=== PATIENT | male | born 1985 | race African-American/Black ===

== ENCOUNTER 2016-10-16 19:28 | Emergency (ER) | payer OTHER ==
[~2016-10-16] VITALS: Ht 175.3 cm; Wt 81.8 kg
[~2016-10-16 19:28] MED LIST: BENTYL10 MG PO; CLONAZEPAM0.5 MG PO; COGENTIN0.5 MG PO; DEPAKOTE500 MG PO; Depakote ER (Extende PO; Depakote PO; FLUOXETINE HCL20 MG PO; GEMFIBROZIL600 MG; GEODON80 MG PO; Geodon PO; Lopid PO; PROMETHAZINE HC25 M1 PO; PROZAC10 MG PO; RISPERDAL2 MG PO; RISPERDAL3 MG PO; RISPERDAL4 MG PO; RISPERIDONE4 MG PO; ROBITUSSIN AC,T10 ML PO; SEROQUEL100 MG PO; SEROQUEL300 MG PO; risperDAL PO; risperdal
[2016-10-16 19:31] VITALS: BP 204/187
== END 2016-10-16 20:33 | disposition left against medical advice (07) ==
LOC: EME 19:28
DX: R55 Syncope and collapse (principal); R11.10 Vomiting, unspecified; Z53.21 Procedure and treatment not carried out due to patient leaving prior to being seen by health care provider
CPT/HCPCS: 80053; 81003; 85027

== ENCOUNTER 2016-11-11 22:59 | Emergency (ER) | payer SELFPAY ==
[~2016-11-11] VITALS: Ht 175.3 cm; Wt 81.4 kg
[2016-11-11] MEDS ORDERED: ZOFRAN ODT4 MG PO (23:27)
[2016-11-11 23:38] VITALS: BP 121/58
== END 2016-11-11 23:43 | disposition home or self-care (01) ==
LOC: EME → EDBD 22:59 → EME 23:43
DX: F12.10 Cannabis abuse, uncomplicated (principal); F17.200 Nicotine dependence, unspecified, uncomplicated
CPT/HCPCS: 99281; 99284

== ENCOUNTER 2016-12-24 23:31 | Inpatient (IN) | payer OTHER ==
[~2016-12-24] VITALS: Ht 170.2 cm; Wt 68.4 kg
[~2016-12-24 23:31] MED LIST changes: +ZOFRAN ODT4 MG PO
[2016-12-25 00:03] LABS: EOSINOPHIL (%) 1.4 % (0-5); EOSINOPHIL COUNT 0.1 K/uL (0-0.3); HEMATOCRIT 36.2 % (38.0-50.0); IMMATURE GRANULOCYTE (%) 0.3 % (0.0-0.7); INSTRUMENT ABS NEUTROPHIL CT 3.6 K/uL; LYMPHOCYTE COUNT 1.8 K/uL (1.0-2.8); MCH 29.2 PG (29.0-34.0); MCHC 34.5 G/DL (30.0-36.0); MCV 84.6 FL (86-99); MEAN PLAT.VOLUME 11.5 uM^3 (9.0-12.4); MONOCYTE (%) 14.2 % (3-12); MONOCYTE COUNT 0.9 K/uL (0-0.8); NEUTROPHIL (%) 55.6 % (45-76); NEUTROPHIL COUNT 3.6 K/uL (1.8-6.4); PLATELET COUNT 130 K/uL (156-360); RBC DIS.WIDTH-SD 43.4 % (39-53); RED BLOOD COUNT 4.28 M/uL (4.00-5.50); WHITE BLOOD COUNT 6.4 K/uL (4.1-10.2)
[2016-12-25 00:20] LABS: CHLORIDE 108 mEq/L (99-109); POTASSIUM 3.5 mEq/L (3.7-5.4); SODIUM 138 mEq/L (136-147)
[2016-12-25 00:21] LABS: ADD MIUA? NO; BILIRUBIN NEGATIVE; BLOOD NEGATIVE; COLOR YELLOW ((YELLOW)); GLUCOSE (STRIP) NEGATIVE; KETONES NEGATIVE; LEUKOCYTES NEGATIVE; NITRITE NEGATIVE; PROTEIN (STRIP) NEGATIVE; SPECIFIC GRAVITY 1.021 (1.000-1.030); UCUL ADDED? NO
[2016-12-25 00:23] LABS: GLUCOSE 105 mg/dL (70-99)
[2016-12-25 00:24] LABS: ANION GAP 6 MEQ/L (2-14)
[2016-12-25 00:25] LABS: TOTAL BILIRUBIN 0.3 mg/dL (0.0-1.0)
[2016-12-25 00:26] LABS: SERUM ETHYL ALCOHOL < 10 mg/dL
[2016-12-25 00:27] LABS: ALKALINE PHOSPHATASE 97 IU/L (3-129); GFR ESTIMATE (CALCULATED) > 59 mL/min/
[2016-12-25 00:28] LABS: UREA NITROGEN (BUN) 15 mg/dL (9-23)
[2016-12-25 00:30] LABS: SALICYLATE < 5.0 MG/DL (15-30)
[2016-12-25 00:36] LABS: ADD MEDTOX COMMENT Y; AMPHETAMINE NEGATIVE (500 ng/mL); BARBITURATES NEGATIVE (200 ng/mL); BENZODIAZEPINES NEGATIVE (150 ng/mL); COCAINE NEGATIVE (150 ng/mL); INTERNAL CONTROLS VALID? YES; METHADONE NEGATIVE (200 ng/mL); METHAMPHETAMINE NEGATIVE (500 ng/mL); OPIATES (MORPHINE) NEGATIVE (100 ng/mL); OXYCODONE NEGATIVE (100 ng/mL); PHENCYCLIDINE NEGATIVE (25 ng/mL); PROPOXYPHENE NEGATIVE (300 ng/mL); THC CANNABINOIDS PRESUMPTIVE POSITIVE (50 ng/mL); TRICYCLIC ANTIDEPRESSANTS NEGATIVE (300 ng/mL)
[2016-12-25 02:51] VITALS: BP 141/85
[2016-12-25 08:00] VITALS: BP 135/80
[2016-12-25 15:44] VITALS: BP 132/66
[2016-12-26 07:54] VITALS: BP 128/74
[2016-12-26 15:31] VITALS: BP 111/75
[2016-12-27 08:56] VITALS: BP 115/77
[2016-12-27 15:58] VITALS: BP 120/70
[2016-12-28 07:55] VITALS: BP 148/64
[2016-12-28 15:28] VITALS: BP 117/68
[2016-12-29 07:48] VITALS: BP 125/77
[2016-12-29 15:41] VITALS: BP 164/71
[2016-12-30 07:55] VITALS: BP 145/82
[2016-12-30 15:09] VITALS: BP 123/73
[2016-12-31 07:49] VITALS: BP 132/73
[2016-12-31 15:58] VITALS: BP 125/66
[2017-01-01 07:41] VITALS: BP 125/72
[2017-01-01 15:38] VITALS: BP 122/71
[2017-01-02 07:35] VITALS: BP 123/76
[2017-01-02 15:19] VITALS: BP 127/67
[2017-01-03 15:25] VITALS: BP 139/81
[2017-01-04 07:02] VITALS: BP 136/64
[2017-01-04 14:43] VITALS: BP 130/66
[2017-01-04 19:33] VITALS: BP 115/65
[2017-01-05 07:33] VITALS: BP 159/74
[2017-01-05 15:24] VITALS: BP 133/64
[2017-01-06 07:34] VITALS: BP 123/68
[2017-01-06 15:17] VITALS: BP 135/70
[2017-01-07 07:17] VITALS: BP 127/74
[2017-01-07 15:28] VITALS: BP 141/66
[2017-01-08 07:54] VITALS: BP 126/72
[2017-01-08] MEDS ORDERED: DIVALPROEX SOD500 M1 PO (09:05)
[2017-01-08] MEDS ORDERED: DEPAKOTE ER500 MG PO (09:05)
[2017-01-08] MEDS ORDERED: ZYPREXA20 MG PO (09:05)
[2017-01-08] MEDS ORDERED: RISPERDAL2 MG PO (09:07)
[2017-01-08] MEDS ORDERED: RISPERDAL4 MG PO (09:07)
== END 2017-01-08 10:14 | disposition home or self-care (01) | DRG 885 ==
LOC: EME → EDBD 23:31 → EME 23:31 → 1WEST 12-25 01:08 → EDOF 12-25 01:08 → ENRESERV 12-25 01:55 → 1WEST 12-25 02:42
PROVIDERS: Emergency Medicine
DX: F25.0 Schizoaffective disorder, bipolar type (principal); F12.90 Cannabis use, unspecified, uncomplicated; F19.90 Other psychoactive substance use, unspecified, uncomplicated; F17.200 Nicotine dependence, unspecified, uncomplicated; Z91.5 Personal history of self-harm; Z79.899 Other long term (current) drug therapy
CPT/HCPCS: 80053; 80164; 81003; 84999; 85025; 90837; 97150 GO; 97166 GO; 99281; 99285; G0480; Q0177

== ENCOUNTER 2017-01-12 04:01 | Emergency (ER) | payer OTHER ==
[~2017-01-12] VITALS: Ht 175.3 cm; Wt 75.4 kg
[~2017-01-12 04:01] MED LIST changes: +DEPAKOTE ER500 MG PO; +DIVALPROEX SOD500 M1 PO; +ZYPREXA20 MG PO
[2017-01-12 04:27] LABS: HEMATOCRIT 38.9 % (38.0-50.0); MCH 28.9 PG (29.0-34.0); MCHC 34.2 G/DL (30.0-36.0); MCV 84.6 FL (86-99); MEAN PLAT.VOLUME 9.9 uM^3 (9.0-12.4); RBC DIS.WIDTH-CV 14.6 % (11.8-14.6); RBC DIS.WIDTH-SD 44.9 % (39-53); WHITE BLOOD COUNT 10.5 K/uL (4.1-10.2)
[2017-01-12 04:28] LABS: PLATELET COUNT 292 K/uL (156-360)
[2017-01-12 04:35] LABS: CHLORIDE 108 mEq/L (99-109)
[2017-01-12 04:36] LABS: POTASSIUM 3.9 mEq/L (3.7-5.4); SODIUM 140 mEq/L (136-147)
[2017-01-12 04:37] LABS: GLUCOSE 125 mg/dL (70-99)
[2017-01-12 04:39] LABS: ANION GAP 10 MEQ/L (2-14)
[2017-01-12 04:40] LABS: SERUM ETHYL ALCOHOL < 10 mg/dL
[2017-01-12 04:41] LABS: GFR ESTIMATE (CALCULATED) > 59 mL/min/
[2017-01-12 04:43] LABS: UREA NITROGEN (BUN) 7 mg/dL (9-23)
[2017-01-12 04:44] LABS: SALICYLATE < 5.0 MG/DL (15-30)
[2017-01-12 05:52] VITALS: BP 102/70
== END 2017-01-12 05:59 | disposition home or self-care (01) ==
LOC: EME → EDBD 04:01 → EME 05:59
PROVIDERS: Emergency Medicine
DX: T40.991A Poisoning by other psychodysleptics [hallucinogens], accidental (unintentional), initial encounter (principal); F16.10 Hallucinogen abuse, uncomplicated; J45.909 Unspecified asthma, uncomplicated; F41.9 Anxiety disorder, unspecified; F32.9 Major depressive disorder, single episode, unspecified; F25.9 Schizoaffective disorder, unspecified; F31.9 Bipolar disorder, unspecified; Z59.0 Homelessness; F17.200 Nicotine dependence, unspecified, uncomplicated
CPT/HCPCS: 80048; 85027; 93005; 99281; 99284; G0480

== ENCOUNTER 2017-01-14 17:42 | Emergency (ER) | payer OTHER ==
[~2017-01-14] VITALS: Ht 175.3 cm; Wt 74.5 kg
[2017-01-14 18:58] LABS: HEMATOCRIT 34.6 % (38.0-50.0); MCH 29.1 PG (29.0-34.0); MCHC 34.4 G/DL (30.0-36.0); MCV 84.6 FL (86-99); MEAN PLAT.VOLUME 10.2 uM^3 (9.0-12.4); PLATELET COUNT 243 K/uL (156-360); RBC DIS.WIDTH-CV 14.7 % (11.8-14.6); RBC DIS.WIDTH-SD 45.5 % (39-53); RED BLOOD COUNT 4.09 M/uL (4.00-5.50); WHITE BLOOD COUNT 9.2 K/uL (4.1-10.2)
[2017-01-14 19:08] LABS: CHLORIDE 108 mEq/L (99-109); POTASSIUM 3.9 mEq/L (3.7-5.4); SODIUM 139 mEq/L (136-147)
[2017-01-14 19:09] LABS: GLUCOSE 98 mg/dL (70-99)
[2017-01-14 19:11] LABS: ANION GAP 8 MEQ/L (2-14)
[2017-01-14 19:12] LABS: SERUM ETHYL ALCOHOL < 10 mg/dL
[2017-01-14 19:13] LABS: GFR ESTIMATE (CALCULATED) > 59 mL/min/
[2017-01-14 19:15] LABS: UREA NITROGEN (BUN) 15 mg/dL (9-23)
[2017-01-14 19:16] LABS: SALICYLATE < 5.0 MG/DL (15-30)
[2017-01-14 19:47] VITALS: BP 132/74
== END 2017-01-14 19:48 | disposition home or self-care (01) ==
LOC: EME 17:42
PROVIDERS: Emergency Medicine
DX: F25.0 Schizoaffective disorder, bipolar type (principal); J45.909 Unspecified asthma, uncomplicated; F32.9 Major depressive disorder, single episode, unspecified; F41.9 Anxiety disorder, unspecified; F17.200 Nicotine dependence, unspecified, uncomplicated; Z91.5 Personal history of self-harm
CPT/HCPCS: 80048; 85027; 90839; 99281; 99285; G0480

== ENCOUNTER 2017-01-17 20:51 | Emergency (ER) | payer OTHER ==
[~2017-01-17] VITALS: Ht 175.3 cm; Wt 77.9 kg
[2017-01-17] MEDS ORDERED: OLANZAPINE20 MG PO (22:20)
[2017-01-17 22:37] VITALS: BP 130/77
== END 2017-01-17 23:10 | disposition home or self-care (01) ==
LOC: EME 20:51
DX: F41.9 Anxiety disorder, unspecified (principal); Z76.0 Encounter for issue of repeat prescription
CPT/HCPCS: 99281; 99283

== ENCOUNTER 2017-01-19 00:11 | Emergency (ER) | payer OTHER ==
[~2017-01-19] VITALS: Ht 177.8 cm; Wt 74.3 kg
[~2017-01-19 00:11] MED LIST changes: +OLANZAPINE20 MG PO
[2017-01-19 01:43] LABS: EOSINOPHIL (%) 1.1 % (0-5); EOSINOPHIL COUNT 0.1 K/uL (0-0.3); IMMATURE GRANULOCYTE (%) 0.3 % (0.0-0.7); INSTRUMENT ABS NEUTROPHIL CT 6.3 K/uL; LYMPHOCYTE COUNT 1.7 K/uL (1.0-2.8); MCH 28.7 PG (29.0-34.0); MCHC 34.2 G/DL (30.0-36.0); MCV 83.9 FL (86-99); MEAN PLAT.VOLUME 10.5 uM^3 (9.0-12.4); MONOCYTE (%) 10.3 % (3-12); MONOCYTE COUNT 0.9 K/uL (0-0.8); NEUTROPHIL (%) 69.3 % (45-76); NEUTROPHIL COUNT 6.3 K/uL (1.8-6.4); PLATELET COUNT 216 K/uL (156-360); RBC DIS.WIDTH-CV 14.6 % (11.8-14.6); RBC DIS.WIDTH-SD 44.7 % (39-53); RED BLOOD COUNT 4.29 M/uL (4.00-5.50); WHITE BLOOD COUNT 9.1 K/uL (4.1-10.2)
[2017-01-19 01:48] LABS: CHLORIDE 108 mEq/L (99-109); POTASSIUM 3.6 mEq/L (3.7-5.4); SODIUM 142 mEq/L (136-147)
[2017-01-19 01:50] LABS: GLUCOSE 94 mg/dL (70-99)
[2017-01-19 01:51] LABS: ANION GAP 9 MEQ/L (2-14)
[2017-01-19 01:53] LABS: SERUM ETHYL ALCOHOL < 10 mg/dL
[2017-01-19 01:54] LABS: GFR ESTIMATE (CALCULATED) > 59 mL/min/
[2017-01-19 01:55] LABS: UREA NITROGEN (BUN) 12 mg/dL (9-23)
[2017-01-19 05:35] LABS: AMPHETAMINE NEGATIVE (500 ng/mL); BARBITURATES NEGATIVE (200 ng/mL); BENZODIAZEPINES NEGATIVE (150 ng/mL); COCAINE NEGATIVE (150 ng/mL); INTERNAL CONTROLS VALID? YES; METHADONE NEGATIVE (200 ng/mL); METHAMPHETAMINE NEGATIVE (500 ng/mL); OPIATES (MORPHINE) NEGATIVE (100 ng/mL); OXYCODONE NEGATIVE (100 ng/mL); PHENCYCLIDINE NEGATIVE (25 ng/mL); PROPOXYPHENE NEGATIVE (300 ng/mL); THC CANNABINOIDS NEGATIVE (50 ng/mL); TRICYCLIC ANTIDEPRESSANTS NEGATIVE (300 ng/mL)
[2017-01-19 14:47] VITALS: BP 124/76
== END 2017-01-19 14:47 | disposition home or self-care (01) ==
LOC: EME → EDBD 00:11 → EME 00:11
PROVIDERS: Emergency Medicine
DX: F16.10 Hallucinogen abuse, uncomplicated (principal); R41.82 Altered mental status, unspecified; F25.9 Schizoaffective disorder, unspecified; J45.909 Unspecified asthma, uncomplicated; F41.9 Anxiety disorder, unspecified; F32.9 Major depressive disorder, single episode, unspecified; F17.200 Nicotine dependence, unspecified, uncomplicated; Z91.5 Personal history of self-harm
CPT/HCPCS: 70450; 80048; 80164; 85025; 90839; 99281; 99285; G0480

== ENCOUNTER 2017-01-26 19:50 | Emergency (ER) | payer OTHER ==
[~2017-01-26] VITALS: Ht 175.3 cm; Wt 73.3 kg
[2017-01-26 20:17] LABS: HEMATOCRIT 38.7 % (38.0-50.0); MCH 29.2 PG (29.0-34.0); MCHC 34.4 G/DL (30.0-36.0); MCV 84.9 FL (86-99); MEAN PLAT.VOLUME 10.8 uM^3 (9.0-12.4); PLATELET COUNT 170 K/uL (156-360); RBC DIS.WIDTH-CV 15.1 % (11.8-14.6); RBC DIS.WIDTH-SD 47.2 % (39-53); RED BLOOD COUNT 4.56 M/uL (4.00-5.50); WHITE BLOOD COUNT 9.5 K/uL (4.1-10.2)
[2017-01-26 20:26] LABS: CHLORIDE 113 mEq/L (99-109); POTASSIUM 3.7 mEq/L (3.7-5.4); SODIUM 140 mEq/L (136-147)
[2017-01-26 20:28] LABS: GLUCOSE 91 mg/dL (70-99)
[2017-01-26 20:30] LABS: ANION GAP 5 MEQ/L (2-14); TOTAL BILIRUBIN 0.1 mg/dL (0.0-1.0)
[2017-01-26 20:32] LABS: ALKALINE PHOSPHATASE 99 IU/L (3-129); GFR ESTIMATE (CALCULATED) > 59 mL/min/
[2017-01-26 20:33] LABS: UREA NITROGEN (BUN) 14 mg/dL (9-23)
[2017-01-26 20:35] LABS: LIPASE 25 U/L (1.0-51.0)
[2017-01-26 21:42] LABS: ADD MIUA? NO; BILIRUBIN NEGATIVE; BLOOD NEGATIVE; COLOR YELLOW ((YELLOW)); GLUCOSE (STRIP) NEGATIVE; KETONES NEGATIVE; LEUKOCYTES NEGATIVE; NITRITE NEGATIVE; PROTEIN (STRIP) NEGATIVE; SPECIFIC GRAVITY 1.026 (1.000-1.030); UCUL ADDED? NO; UROBILINOGEN 0.2 MG/DL (0.2-1.0)
[2017-01-26 21:58] LABS: SERUM ETHYL ALCOHOL < 10 mg/dL
[2017-01-26 22:50] LABS: TROP-I INTERPRETATION NEGATIVE; TROPONIN-I < 0.01 ng/mL (0.0-0.30)
[2017-01-26 23:09] VITALS: BP 105/62
== END 2017-01-26 23:09 | disposition home or self-care (01) ==
LOC: EME 19:50
PROVIDERS: Emergency Medicine
DX: R19.7 Diarrhea, unspecified (principal); F20.9 Schizophrenia, unspecified; J45.909 Unspecified asthma, uncomplicated; F41.9 Anxiety disorder, unspecified; F31.9 Bipolar disorder, unspecified; F32.9 Major depressive disorder, single episode, unspecified; Z91.5 Personal history of self-harm; F17.200 Nicotine dependence, unspecified, uncomplicated
CPT/HCPCS: 71010; 80053; 81003; 83690; 84484; 85027; 90839; 99281; 99284; G0480

== ENCOUNTER 2017-01-29 01:58 | Emergency (ER) | payer OTHER ==
[~2017-01-29] VITALS: Ht 175.3 cm; Wt 72.2 kg
[2017-01-29 02:55] LABS: ADD MIUA? NO; BILIRUBIN NEGATIVE; BLOOD NEGATIVE; COLOR STRAW ((YELLOW)); GLUCOSE (STRIP) NEGATIVE; KETONES 5; LEUKOCYTES NEGATIVE; NITRITE NEGATIVE; PROTEIN (STRIP) NEGATIVE; SPECIFIC GRAVITY 1.006 (1.000-1.030); UCUL ADDED? NO; UROBILINOGEN 0.2 MG/DL (0.2-1.0)
[2017-01-29 03:03] LABS: HEMATOCRIT 37.4 % (38.0-50.0); MCH 29.4 PG (29.0-34.0); MCHC 35.6 G/DL (30.0-36.0); MCV 82.6 FL (86-99); MEAN PLAT.VOLUME 10.5 uM^3 (9.0-12.4); PLATELET COUNT 166 K/uL (156-360); RBC DIS.WIDTH-CV 14.6 % (11.8-14.6); RBC DIS.WIDTH-SD 43.6 % (39-53); RED BLOOD COUNT 4.53 M/uL (4.00-5.50); WHITE BLOOD COUNT 9.7 K/uL (4.1-10.2)
[2017-01-29 03:10] LABS: AMPHETAMINE NEGATIVE (500 ng/mL); BARBITURATES NEGATIVE (200 ng/mL); BENZODIAZEPINES NEGATIVE (150 ng/mL); COCAINE NEGATIVE (150 ng/mL); INTERNAL CONTROLS VALID? YES; METHADONE NEGATIVE (200 ng/mL); METHAMPHETAMINE NEGATIVE (500 ng/mL); OPIATES (MORPHINE) NEGATIVE (100 ng/mL); OXYCODONE NEGATIVE (100 ng/mL); PHENCYCLIDINE NEGATIVE (25 ng/mL); PROPOXYPHENE NEGATIVE (300 ng/mL); THC CANNABINOIDS NEGATIVE (50 ng/mL); TRICYCLIC ANTIDEPRESSANTS NEGATIVE (300 ng/mL)
[2017-01-29 03:16] LABS: GLUCOSE 85 mg/dL (70-99)
[2017-01-29 03:19] LABS: SERUM ETHYL ALCOHOL < 10 mg/dL
[2017-01-29 03:20] LABS: GFR ESTIMATE (CALCULATED) > 59 mL/min/
[2017-01-29 03:21] LABS: UREA NITROGEN (BUN) 5 mg/dL (9-23)
[2017-01-29 03:22] LABS: CHLORIDE 92 mEq/L (99-109); POTASSIUM 2.7 mEq/L (3.7-5.4)
[2017-01-29 03:26] LABS: SODIUM 138 mEq/L (136-147)
[2017-01-29 03:29] LABS: ANION GAP 8 MEQ/L (2-14)
[2017-01-29 05:53] VITALS: BP 112/80
== END 2017-01-29 05:54 | disposition home or self-care (01) ==
LOC: EME 01:58
PROVIDERS: Emergency Medicine
DX: F25.0 Schizoaffective disorder, bipolar type (principal); Z91.14 Patient's other noncompliance with medication regimen; E87.6 Hypokalemia; R11.2 Nausea with vomiting, unspecified; R19.7 Diarrhea, unspecified; F17.200 Nicotine dependence, unspecified, uncomplicated
CPT/HCPCS: 80048; 81003; 85027; 90839; 99281; 99285; G0480

== ENCOUNTER 2017-02-03 02:11 | Emergency (ER) | payer OTHER ==
[~2017-02-03] VITALS: Ht 175.3 cm; Wt 71.0 kg
[2017-02-03 02:56] LABS: EOSINOPHIL (%) 2.9 % (0-5); EOSINOPHIL COUNT 0.3 K/uL (0-0.3); HEMATOCRIT 38.8 % (38.0-50.0); IMMATURE GRANULOCYTE (%) 0.2 % (0.0-0.7); LYMPHOCYTE COUNT 2.2 K/uL (1.0-2.8); MCH 28.8 PG (29.0-34.0); MCHC 34.5 G/DL (30.0-36.0); MCV 83.3 FL (86-99); MEAN PLAT.VOLUME 10.7 uM^3 (9.0-12.4); MONOCYTE (%) 8.3 % (3-12); MONOCYTE COUNT 0.8 K/uL (0-0.8); NEUTROPHIL (%) 64.6 % (45-76); PLATELET COUNT 206 K/uL (156-360); RBC DIS.WIDTH-SD 45.2 % (39-53); RED BLOOD COUNT 4.66 M/uL (4.00-5.50); WHITE BLOOD COUNT 9.2 K/uL (4.1-10.2)
[2017-02-03 03:07] LABS: SODIUM 142 mEq/L (136-147)
[2017-02-03 03:10] LABS: GLUCOSE 79 mg/dL (70-99)
[2017-02-03 03:11] LABS: ANION GAP 13 MEQ/L (2-14); TOTAL BILIRUBIN 0.3 mg/dL (0.0-1.0)
[2017-02-03 03:13] LABS: ALKALINE PHOSPHATASE 89 IU/L (3-129); GFR ESTIMATE (CALCULATED) > 59 mL/min/; SERUM ETHYL ALCOHOL < 10 mg/dL
[2017-02-03 03:14] LABS: UREA NITROGEN (BUN) 11 mg/dL (9-23)
[2017-02-03 03:21] LABS: CHLORIDE 105 mEq/L (99-109); POTASSIUM 4.2 mEq/L (3.7-5.4)
[2017-02-03 05:29] VITALS: BP 102/71
== END 2017-02-03 05:29 | disposition home or self-care (01) ==
LOC: EME 02:11
PROVIDERS: Emergency Medicine
DX: F19.129 Other psychoactive substance abuse with intoxication, unspecified (principal); Z91.14 Patient's other noncompliance with medication regimen; F17.200 Nicotine dependence, unspecified, uncomplicated
CPT/HCPCS: 80053; 85025; 99281; 99284; G0480

== ENCOUNTER 2017-02-05 01:36 | Emergency (ER) | payer OTHER ==
[~2017-02-05] VITALS: Ht 175.3 cm; Wt 76.9 kg
[2017-02-05 02:33] LABS: HEMATOCRIT 36.1 % (38.0-50.0); MCH 29.1 PG (29.0-34.0); MCHC 34.9 G/DL (30.0-36.0); MCV 83.4 FL (86-99); MEAN PLAT.VOLUME 10.2 uM^3 (9.0-12.4); PLATELET COUNT 196 K/uL (156-360); RBC DIS.WIDTH-SD 45.9 % (39-53); RED BLOOD COUNT 4.33 M/uL (4.00-5.50); WHITE BLOOD COUNT 7.5 K/uL (4.1-10.2)
[2017-02-05 02:40] LABS: ADD MIUA? NO; BILIRUBIN NEGATIVE; BLOOD NEGATIVE; COLOR STRAW ((YELLOW)); GLUCOSE (STRIP) NEGATIVE; KETONES NEGATIVE; LEUKOCYTES NEGATIVE; NITRITE NEGATIVE; PROTEIN (STRIP) NEGATIVE; SPECIFIC GRAVITY 1.004 (1.000-1.030); UCUL ADDED? NO; UROBILINOGEN 0.2 MG/DL (0.2-1.0)
[2017-02-05 02:44] LABS: CHLORIDE 106 mEq/L (99-109); POTASSIUM 3.9 mEq/L (3.7-5.4); SODIUM 139 mEq/L (136-147)
[2017-02-05 02:46] LABS: GLUCOSE 92 mg/dL (70-99)
[2017-02-05 02:47] LABS: ANION GAP 10 MEQ/L (2-14)
[2017-02-05 02:49] LABS: SERUM ETHYL ALCOHOL < 10 mg/dL
[2017-02-05 02:50] LABS: GFR ESTIMATE (CALCULATED) > 59 mL/min/; UREA NITROGEN (BUN) 12 mg/dL (9-23)
[2017-02-05 02:58] LABS: AMPHETAMINE NEGATIVE (500 ng/mL); BARBITURATES NEGATIVE (200 ng/mL); BENZODIAZEPINES NEGATIVE (150 ng/mL); COCAINE NEGATIVE (150 ng/mL); INTERNAL CONTROLS VALID? YES; METHADONE NEGATIVE (200 ng/mL); METHAMPHETAMINE NEGATIVE (500 ng/mL); OPIATES (MORPHINE) NEGATIVE (100 ng/mL); OXYCODONE NEGATIVE (100 ng/mL); PHENCYCLIDINE NEGATIVE (25 ng/mL); PROPOXYPHENE NEGATIVE (300 ng/mL); THC CANNABINOIDS NEGATIVE (50 ng/mL); TRICYCLIC ANTIDEPRESSANTS NEGATIVE (300 ng/mL)
[2017-02-05 03:46] VITALS: BP 130/74
[2017-02-06] MEDS ORDERED: OLANZAPINE20 MG PO (07:00)
[2017-02-06] MEDS ORDERED: RISPERDAL2 MG PO (07:00)
[2017-02-06] MEDS ORDERED: RISPERDAL4 MG PO (07:00)
== END 2017-02-05 03:57 | disposition home or self-care (01) ==
LOC: EME 01:36
PROVIDERS: Emergency Medicine
DX: F25.0 Schizoaffective disorder, bipolar type (principal); J45.909 Unspecified asthma, uncomplicated; F41.9 Anxiety disorder, unspecified; F32.9 Major depressive disorder, single episode, unspecified; F17.200 Nicotine dependence, unspecified, uncomplicated
CPT/HCPCS: 80048; 81003; 85027; 90839; 99281; 99284; G0480

== ENCOUNTER 2017-02-06 06:27 | Emergency (ER) | payer OTHER ==
[~2017-02-06] VITALS: Ht 175.3 cm; Wt 76.7 kg
[2017-02-06] MEDS ORDERED: RISPERDAL2 MG PO (07:00)
[2017-02-06] MEDS ORDERED: OLANZAPINE20 MG PO (07:00)
[2017-02-06] MEDS ORDERED: RISPERDAL4 MG PO (07:00)
[2017-02-06 07:35] VITALS: BP 148/95
== END 2017-02-06 07:36 | disposition home or self-care (01) ==
LOC: EME 06:27
DX: F20.9 Schizophrenia, unspecified (principal); F41.9 Anxiety disorder, unspecified; Z76.0 Encounter for issue of repeat prescription
CPT/HCPCS: 99281; 99283

== ENCOUNTER 2017-02-13 05:41 | Emergency (ER) | payer OTHER ==
[~2017-02-13] VITALS: Ht 175.3 cm; Wt 75.2 kg
[2017-02-13 08:29] VITALS: BP 134/90
[2017-02-14] MEDS ORDERED: RISPERIDONE2 MG PO (20:07)
[2017-02-14] MEDS ORDERED: OLANZAPINE20 MG PO ×2 (20:08→20:09)
[2017-02-14] MEDS ORDERED: RISPERIDONE4 MG PO (20:08)
[2017-02-14] MEDS ORDERED: DEPAKOTE ER500 MG PO ×2 (20:10→20:11)
== END 2017-02-13 08:29 | disposition home or self-care (01) ==
LOC: EME 05:41
DX: F25.0 Schizoaffective disorder, bipolar type (principal); F31.9 Bipolar disorder, unspecified; F12.90 Cannabis use, unspecified, uncomplicated; F10.20 Alcohol dependence, uncomplicated; Z91.5 Personal history of self-harm
CPT/HCPCS: 90839; 99281; 99284

== ENCOUNTER 2017-02-14 14:59 | Inpatient (IN) | payer OTHER ==
[~2017-02-14] VITALS: Ht 175.3 cm; Wt 77.3 kg
[2017-02-14 15:55] LABS: HEMATOCRIT 39.5 % (38.0-50.0); HEMOGLOBIN 13.7 G/DL (12.5-16.6); MCH 29.1 PG (29.0-34.0); MCHC 34.7 G/DL (30.0-36.0); MCV 83.9 FL (86-99); PLATELET COUNT 234 K/uL (156-360); RBC DIS.WIDTH-CV 15.8 % (11.8-14.6); RBC DIS.WIDTH-SD 48.4 % (39-53); RED BLOOD COUNT 4.71 M/uL (4.00-5.50); WHITE BLOOD COUNT 9.2 K/uL (4.1-10.2)
[2017-02-14 15:57] LABS: APPEARANCE SL.HAZY ((CLEAR)); BILIRUBIN NEGATIVE; BLOOD NEGATIVE; COLOR YELLOW ((YELLOW)); GLUCOSE (STRIP) NEGATIVE; KETONES NEGATIVE; LEUKOCYTES NEGATIVE; NITRITE NEGATIVE; PROTEIN (STRIP) NEGATIVE; SPECIFIC GRAVITY 1.025 (1.000-1.030); UROBILINOGEN 0.2 MG/DL (0.2-1.0)
[2017-02-14 16:00] LABS: BACTERIA NONE SEEN /HPF; EPITHELIAL CELLS RARE /HPF; MUCUS NONE SEEN /LPF; RED BLOOD CELLS 0-5 /HPF (0-5); WHITE BLOOD CELLS 0-5 /HPF (0-5)
[2017-02-14 16:01] LABS: CHLORIDE 105 mEq/L (99-109); SODIUM 139 mEq/L (136-147)
[2017-02-14 16:03] LABS: GLUCOSE 71 mg/dL (70-99)
[2017-02-14 16:06] LABS: SERUM ETHYL ALCOHOL < 10 mg/dL
[2017-02-14 16:07] LABS: CREATININE 0.8 mg/dL (0.6-1.3); GFR ESTIMATE (CALCULATED) > 59 mL/min/ (58.99-99999)
[2017-02-14 16:09] LABS: UREA NITROGEN (BUN) 13 mg/dL (9-23)
[2017-02-14 16:10] LABS: SALICYLATE < 5.0 MG/DL (15-30)
[2017-02-14 16:11] LABS: ACETAMINOPHEN (TYLENOL) < 10 mcg/mL (10-30)
[2017-02-14 16:24] LABS: AMPHETAMINE NEGATIVE (500 ng/mL); BARBITURATES NEGATIVE (200 ng/mL); BENZODIAZEPINES NEGATIVE (150 ng/mL); BUPRENORPHINE NEGATIVE (10 ng/mL); COCAINE NEGATIVE (150 ng/mL); METHADONE NEGATIVE (200 ng/mL); METHAMPHETAMINE NEGATIVE (500 ng/mL); OPIATES (MORPHINE) NEGATIVE (100 ng/mL); OXYCODONE NEGATIVE (100 ng/mL); PHENCYCLIDINE NEGATIVE (25 ng/mL); PROPOXYPHENE NEGATIVE (300 ng/mL); THC CANNABINOIDS NEGATIVE (50 ng/mL); TRICYCLIC ANTIDEPRESSANTS NEGATIVE (300 ng/mL)
[2017-02-14] MEDS ORDERED: RISPERIDONE2 MG PO (20:07)
[2017-02-14] MEDS ORDERED: OLANZAPINE20 MG PO ×2 (20:08→20:09)
[2017-02-14] MEDS ORDERED: RISPERIDONE4 MG PO (20:08)
[2017-02-14] MEDS ORDERED: DEPAKOTE ER500 MG PO ×2 (20:10→20:11)
[2017-02-14 20:18] VITALS: BP 134/60
[2017-02-15 07:07] VITALS: BP 121/55
[2017-02-15 15:36] VITALS: BP 141/68
[2017-02-16 07:56] VITALS: BP 118/60
[2017-02-16 15:35] VITALS: BP 124/67
[2017-02-17 08:03] VITALS: BP 110/71
[2017-02-17 15:41] VITALS: BP 121/81
[2017-02-18 08:01] VITALS: BP 117/59
[2017-02-18 15:31] VITALS: BP 136/69
[2017-02-19 07:54] VITALS: BP 128/71
[2017-02-19 15:29] VITALS: BP 124/78
[2017-02-20 08:01] VITALS: BP 135/80
[2017-02-20 15:46] VITALS: BP 133/84
[2017-02-21 08:02] VITALS: BP 116/66
[2017-02-21 15:27] VITALS: BP 113/70
[2017-02-22 07:51] VITALS: BP 106/59
[2017-02-22 15:20] VITALS: BP 115/66
[2017-02-23 07:40] VITALS: BP 127/71
[2017-02-23 15:57] VITALS: BP 116/56
[2017-02-24 09:13] VITALS: BP 143/76
[2017-02-24 15:30] VITALS: BP 152/87
[2017-02-24 17:49] VITALS: BP 122/63
[2017-02-25 07:28] VITALS: BP 116/75
[2017-02-25 15:40] VITALS: BP 132/73
[2017-02-26 08:03] VITALS: BP 124/66
[2017-02-26 15:33] VITALS: BP 128/76
[2017-02-27 07:41] VITALS: BP 140/65
[2017-02-27 15:35] VITALS: BP 130/91
[2017-02-28 07:56] VITALS: BP 131/65
[2017-02-28 15:52] VITALS: BP 125/69
[2017-03-01 09:43] VITALS: BP 112/67
[2017-03-01 16:29] VITALS: BP 126/75
[2017-03-02 07:55] VITALS: BP 122/60
[2017-03-02 15:42] VITALS: BP 154/79
[2017-03-03 07:13] VITALS: BP 116/57
[2017-03-03] MEDS ORDERED: RISPERDAL4 MG PO (11:32)
[2017-03-03] MEDS ORDERED: TRAZODONE HCL50 MG PO (11:32)
[2017-03-03] MEDS ORDERED: ZYPREXA20 MG PO (11:32)
[2017-03-03] MEDS ORDERED: DIVALPROEX SOD500 M1 PO ×2 (11:32→11:50)
== END 2017-03-03 13:20 | disposition home or self-care (01) | DRG 885 ==
LOC: EME 14:59 → 1WEST 16:45 → EDOF 16:45 → 1WEST 16:45 → ENRESERV 18:48 → 1WEST 19:57
PROVIDERS: Physician Assistant Medical
DX: F25.0 Schizoaffective disorder, bipolar type (principal); F20.9 Schizophrenia, unspecified; F41.9 Anxiety disorder, unspecified; J45.909 Unspecified asthma, uncomplicated; F17.210 Nicotine dependence, cigarettes, uncomplicated; Z59.0 Homelessness; Z91.14 Patient's other noncompliance with medication regimen; Z81.8 Family history of other mental and behavioral disorders
CPT/HCPCS: 80048; 80164; 81003; 85027; 90839; 97150 GO; 97166 GO; 99281; 99284; G0480

== ENCOUNTER 2017-03-13 01:21 | Emergency (ER) | payer OTHER ==
[~2017-03-13] VITALS: Ht 175.3 cm; Wt 82.3 kg
[~2017-03-13 01:21] MED LIST changes: +RISPERIDONE2 MG PO; +TRAZODONE HCL50 MG PO
[2017-03-13 02:48] VITALS: BP 131/97
== END 2017-03-13 02:49 | disposition home or self-care (01) ==
LOC: EME 01:21
DX: F19.10 Other psychoactive substance abuse, uncomplicated (principal); Z59.0 Homelessness; F20.9 Schizophrenia, unspecified; J45.909 Unspecified asthma, uncomplicated; F32.9 Major depressive disorder, single episode, unspecified; F41.9 Anxiety disorder, unspecified
CPT/HCPCS: 99281; 99284

== ENCOUNTER 2017-04-30 00:55 | Emergency (ER) | payer OTHER ==
[~2017-04-30] VITALS: Ht 175.3 cm; Wt 89.1 kg
[2017-04-30 00:56] VITALS: BP 135/87
[2017-04-30 02:37] LABS: HEMATOCRIT 41.6 % (38.0-50.0); HEMOGLOBIN 14.5 G/DL (12.5-16.6); MCH 29.9 PG (29.0-34.0); MCHC 34.9 G/DL (30.0-36.0); MCV 85.8 FL (86-99); PLATELET COUNT 176 K/uL (156-360); RBC DIS.WIDTH-CV 13.2 % (11.8-14.6); RBC DIS.WIDTH-SD 41.5 % (39-53); RED BLOOD COUNT 4.85 M/uL (4.00-5.50); WHITE BLOOD COUNT 7.1 K/uL (4.1-10.2)
[2017-04-30 02:55] LABS: AMPHETAMINE NEGATIVE (500 ng/mL); BARBITURATES NEGATIVE (200 ng/mL); BENZODIAZEPINES NEGATIVE (150 ng/mL); BUPRENORPHINE NEGATIVE (10 ng/mL); COCAINE NEGATIVE (150 ng/mL); METHADONE NEGATIVE (200 ng/mL); METHAMPHETAMINE NEGATIVE (500 ng/mL); OPIATES (MORPHINE) NEGATIVE (100 ng/mL); OXYCODONE NEGATIVE (100 ng/mL); PHENCYCLIDINE NEGATIVE (25 ng/mL); PROPOXYPHENE NEGATIVE (300 ng/mL); THC CANNABINOIDS NEGATIVE (50 ng/mL); TRICYCLIC ANTIDEPRESSANTS NEGATIVE (300 ng/mL)
[2017-04-30 02:58] LABS: APPEARANCE CLEAR ((CLEAR)); BILIRUBIN NEGATIVE; BLOOD NEGATIVE; COLOR STRAW ((YELLOW)); GLUCOSE (STRIP) NEGATIVE; KETONES NEGATIVE; LEUKOCYTES NEGATIVE; NITRITE NEGATIVE; PROTEIN (STRIP) NEGATIVE; SPECIFIC GRAVITY 1.012 (1.000-1.030); UCUL ADDED? NO; UROBILINOGEN 0.2 MG/DL (0.2-1.0)
[2017-04-30 03:03] LABS: CHLORIDE 105 mEq/L (99-109); POTASSIUM 4.2 mEq/L (3.7-5.4); SODIUM 141 mEq/L (136-147)
[2017-04-30 03:05] LABS: GLUCOSE 85 mg/dL (70-99)
[2017-04-30 03:08] LABS: SERUM ETHYL ALCOHOL < 10 mg/dL
[2017-04-30 03:09] LABS: CREATININE 0.7 mg/dL (0.6-1.3); GFR ESTIMATE (CALCULATED) > 59 mL/min/ (58.99-99999)
[2017-04-30 03:10] LABS: UREA NITROGEN (BUN) 9 mg/dL (9-23)
== END 2017-04-30 04:06 | disposition home or self-care (01) ==
LOC: EME 00:55
PROVIDERS: Emergency Medicine
DX: F25.1 Schizoaffective disorder, depressive type (principal); J45.909 Unspecified asthma, uncomplicated; F41.9 Anxiety disorder, unspecified; Z91.5 Personal history of self-harm
CPT/HCPCS: 80048; 81003; 85027; 90839; 99281; 99284; G0480